=== PATIENT | female | born 1960 | race Two or more races ===

== ENCOUNTER 2022-10-31 12:14 | Emergency (ER) | payer BC, OTHER ==
[~2022-10-31] VITALS: Ht 162.6 cm; Wt 77.8 kg
[2022-10-31] MEDS ORDERED: cloNIDine HCL 0.1 MG TAB ONE (12:37)
[2022-10-31] MEDS ORDERED: cloNIDine HCL 0.1 MG TAB PO ONE (12:45)
[2022-10-31] MEDS ORDERED: LOSA100T25 PO (12:47)
[2022-10-31 13:15] LABS: Urine Bacteria NONE SEEN /hpf (None Seen); Urine Blood Negative /uL (Negative); Urine Mucus FEW (None Seen); Urine Specific Gravity 1.021 (1.001-1.035); Urine WBC 12 /hpf (0 - 5)
[2022-10-31] MEDS ORDERED: NITR-87 PO (13:59)
[2022-10-31 14:55] VITALS: BP 118/74
== END 2022-10-31 15:02 | disposition home or self-care (01) ==
LOC: ER 12:14
DX: M25.562 Pain in left knee (principal); I16.0 Hypertensive urgency; N39.0 Urinary tract infection, site not specified; Z87.891 Personal history of nicotine dependence; Z79.899 Other long term (current) drug therapy
CPT/HCPCS: 73700; 81001